=== PATIENT | female | born 1945 | race Caucasian/White ===

== ENCOUNTER → 2016-11-19 | Outpatient (CLI) | payer MEDICARE, OTHER ==
--- NOTE | 2016-11-20 13:25 | MM ---
Reason for exam: screening (asymptomatic). Last mammogram was performed 2 years ago. History: Patient is postmenopausal. Benign right mammotome panel of the right breast, July 21, 2013. Implant Removal of both breasts, July 2008. Breast lifts of both breasts, 2008. Benign stereotactic core biopsy of the right breast, March 11, 2001. Saline implants in both breasts, 1979. Took estrogen for 4 years beginning at age 53. Took progesterone for 4 years beginning at age 53. Physical Findings: A clinical breast exam by your physician is recommended on an annual basis and results should be correlated with mammographic findings. MG 3D Screening Mammo W/Cad Bilateral CC and MLO view(s) were taken. Prior study comparison: November 22, 2014, bilateral MG diagnostic mammo w CAD [facility]. January 17, 2014, right breast MG diagnostic mammo RT w CAD. July 14, 2013, right diagnostic mammogram w/CAD. There are scattered fibroglandular densities. Finding: There are typically benign dystrophic calcifications in the lower inner quadrant, posterior position of the right breast. Previous mammotome biopsy in the right breast. There is a chronic nodularity in the left breast. There is no discrete abnormality. Benign axillary lymph nodes bilaterally. ASSESSMENT: Benign, BI-RAD 2 RECOMMENDATION: Routine screening mammogram of both breasts in 1 year.
== END | disposition home or self-care (01) ==
LOC: RADMAMWWP 11:17
PROVIDERS: ATTEND Obstetrics & Gynecology
DX: Z12.31 Encounter for screening mammogram for malignant neoplasm of breast (principal)
CPT/HCPCS: 77063; G0202

== ENCOUNTER → 2017-11-27 | Outpatient (CLI) | payer MEDICARE, OTHER ==
[2017-11-27 08:25] LABS: Cholesterol 197 mg/dL (<200); HDL Cholesterol 54 mg/dL (40-60); LDL Cholesterol,Calculated 124 mg/dL (0-99); Triglycerides 96 mg/dL (<150)
== END | disposition home or self-care (01) ==
LOC: LABWHC1 06:50
PROVIDERS: ATTEND Obstetrics & Gynecology
DX: Z13.220 Encounter for screening for lipoid disorders (principal)
CPT/HCPCS: 36415; 80061

== ENCOUNTER → 2017-12-09 | Outpatient (CLI) | payer MEDICARE, OTHER ==
--- NOTE | 2017-12-10 12:05 | MM ---
Reason for exam: screening (asymptomatic). Last mammogram was performed 1 year and 1 month ago. History: Patient is postmenopausal. Benign right mammotome panel of the right breast, July 21, 2013. Implant Removal of both breasts, July 2008. Breast lifts of both breasts, 2008. Benign stereotactic core biopsy of the right breast, March 11, 2001. Saline implants in both breasts, 1979. Took estrogen for 4 years beginning at age 53. Took progesterone for 4 years beginning at age 53. Physical Findings: A clinical breast exam by your physician is recommended on an annual basis and results should be correlated with mammographic findings. MG 3D Screening Mammo W/Cad Bilateral CC and MLO view(s) were taken. Prior study comparison: November 19, 2016, bilateral MG 3d screening mammo w/cad. November 22, 2014, bilateral MG diagnostic mammo w CAD LENIN. There are scattered fibroglandular densities. Finding: There are dystrophic, grouped/clustered calcifications in the inner quadrant, posterior position of the right breast. Some vascular calcifications right breast medially. Previous mammotome biopsy in the right breast. There is no discrete abnormality. ASSESSMENT: Benign, BI-RAD 2 RECOMMENDATION: Routine screening mammogram of both breasts.
== END | disposition home or self-care (01) ==
LOC: RADMAMWWP 09:42
PROVIDERS: ATTEND Obstetrics & Gynecology
DX: Z12.31 Encounter for screening mammogram for malignant neoplasm of breast (principal)
CPT/HCPCS: 77063; 77067

== ENCOUNTER → 2018-08-24 | Outpatient (CLI) | payer MEDICARE, OTHER ==
[2018-08-24 15:29] LABS: Partial Thromboplastin Time 23.9 sec (22.0-30.0); Prothrombin Time 10.2 sec (9.0-12.0)
[2018-08-24 15:30] LABS: Basophils # (A) 0.1 k/uL (0-0.2); Basophils % (A) 1 %; Eosinophils # (A) 0.2 k/uL (0-0.7); Eosinophils % (A) 2 %; HCT 42.4 % (34.0-46.0); HGB 14.1 gm/dL (11.4-16.0); Lymphocytes # (A) 3.2 k/uL (1.0-4.8); Lymphocytes % (A) 25 %; MCH 32.3 pg (25.0-35.0); MCHC 33.1 g/dL (31.0-37.0); MCV 97.6 fL (80.0-100.0); Mean Platelet Volume 7.4; Monocytes # (A) 0.7 k/uL (0-1.0); Monocytes % (A) 5 %; Neutrophils # (A) 8.6 k/uL (1.3-7.7); Neutrophils % (A) 66 %; Platelet Count 378 k/uL (150-450); RBC 4.34 m/uL (3.80-5.40); RDW 13.5 % (11.5-15.5)
[2018-08-25 00:24] LABS: HIV 1 AB Non-Reactive (Non-Reactive); HIV AB P24 Non-Reactive (Non-Reactive); HIV P24 AG Non-Reactive (Non-Reactive)
[2018-08-25 01:43] LABS: Albumin 4.3 g/dL (3.80-4.90); Albumin/Globulin Ratio 2.05 (1.60-3.17); Anion Gap 13.3 mmol/L (4.00-12.00); Calcium 9.4 mg/dL (8.7-10.3); Carbon Dioxide 18.7 mmol/L (21.6-31.8); Globulin 2.1 g/dL (1.6-3.3); Potassium 4.3 mmol/L (3.5-5.5); Total Bilirubin 0.4 mg/dL (0.2-1.2); Total Protein 6.4 g/dL (6.2-8.2)
== END | disposition home or self-care (01) ==
LOC: LABWHC1 14:17
PROVIDERS: ATTEND Internal Medicine
DX: Z01.818 Encounter for other preprocedural examination (principal); Z01.812 Encounter for preprocedural laboratory examination
CPT/HCPCS: 36415; 80053; 85025; 85610; 85730; 86803; 87390; 93005

== ENCOUNTER → 2018-08-28 | Outpatient (CLI) | payer MEDICARE, OTHER ==
[2018-08-28 15:30] LABS: Appearance,Urine Clear (Clear); Bilirubin,Urine Negative (Negative); Blood,Urine Negative (Negative); Color,Urine Yellow; Glucose,Urine (UA) Negative (Negative); Ketones,Urine Negative (Negative); Leukocyte Esterase,Urine Negative (Negative); Nitrite,Urine Negative (Negative); PH, Urine 5.5 (5.0-8.0); Protein,Urine Trace (Negative); Urobilinogen,Urine <2.0 mg/dL (<2.0)
== END | disposition home or self-care (01) ==
LOC: LABWHC1 12:45
PROVIDERS: ATTEND Otolaryngology Facial Plastic Surgery
DX: D72.829 Elevated white blood cell count, unspecified (principal)
CPT/HCPCS: 81003

== ENCOUNTER → 2018-10-02 | Outpatient (CLI) | payer MEDICARE, OTHER ==
--- NOTE | 2018-10-02 14:21 | US ---
EXAMINATION TYPE: US transvaginal DATE OF EXAM: 10/02/2018 COMPARISON: NONE CLINICAL HISTORY: N95.0Postmenopausal bleeding, R93.89Abnormal findi. TECHNIQUE: Transvaginal (TV). Date of LMP: postmenopausal EXAM MEASUREMENTS: Uterus: 8.9 x 4.3 x 6.4 cm Endometrial Stripe: 0.6 cm Right Ovary: 2.7 x 2.2 x 2.1 cm Left Ovary: 2.1 x 1.6 x 1.4 cm 1. Uterus: Retroverted heterogenous 2. Endometrium: measures 0.6 cm 3. Right Ovary: wnl 4. Left Ovary: wnl 5. Bilateral Adnexa: wnl 6. Posterior cul-de-sac: no free fluid Appears be shadowing calculi within the uterus. IMPRESSION: 1. Calcification within the uterus with posterior shadowing. Suspicious pelvic ultrasound abnormality visualized.
== END | disposition home or self-care (01) ==
LOC: RADUSWWP 13:06
PROVIDERS: ATTEND Obstetrics & Gynecology
DX: N85.8 Other specified noninflammatory disorders of uterus (principal)
CPT/HCPCS: 76830

== ENCOUNTER → 2018-10-13 | Outpatient (CLI) | payer MEDICARE, OTHER ==
--- NOTE | 2018-10-13 18:42 | BD ---
EXAMINATION TYPE: Axial Bone Density DATE OF EXAM: 10/13/2018 COMPARISON: NONE CLINICAL HISTORY: 73-year-old female postmenopausal screening, disorder of bone Height: 64.5 Weight: 174.2 FRAX RISK QUESTIONS: Alcohol (3 or more units per day): no Family History (Parent hip fracture): no Glucocorticoids (More than 3mos): no (Ex: prednisone, prednisolone, methylprednisolone, dexamethasone, and hydrocortisone). History of Fracture in Adulthood: no Secondary Osteoporosis: 1. Type 1 Diabetes: no 2. Hyperthyroidism: no 3. Menopause before 45: no 4. Malnutrition: no 5. Chronic liver disease: no Rheumatoid Arthritis: no Current Tobacco Use: no RISK FACTORS HISTORY OF: Family History of Osteoporosis: no Active: yes Diet low in dairy products/other sources of calcium: no Postmenopausal woman: age 57 MEDICATIONS: none Additional History: EXAM MEASUREMENTS: Bone mineral densitometry was performed using the [employer]. Bone mineral density as measured about the Lumbar spine is: ----- L1-L4(G/cm2): 1.352 T Score Values are as follows: ----- L2: 1.2 ----- L3: 1.9 ----- L4: 1.6 ----- L1-L4: 1.4 Bone mineral density has: increased 8.7% since study of: 11.29.2013 Bone mineral density about the R hip (g/cm2): 0.836 Bone mineral density about the L hip (g/cm2): 0.896 T Score values are as follows: -----R Neck: -1.5 -----L Neck: -1.0 -----R Total: -0.1 -----L Total: -0.2 Bone mineral density has: increased 2.3 % since study of: 11.29.2013 IMPRESSION: Osteopenia (T Score between -2.5 and -1). There is slightly increased risk of fracture and the patient may be considered for treatment. Re-Screen 2-5 years. NOTE: T-SCORE=SD OF THE YOUNG ADULT MEAN.
== END | disposition home or self-care (01) ==
LOC: RADBDWWP 13:23
PROVIDERS: ATTEND Obstetrics & Gynecology
DX: M85.80 Other specified disorders of bone density and structure, unspecified site (principal); Z78.0 Asymptomatic menopausal state
CPT/HCPCS: 77080

== ENCOUNTER → 2018-12-11 | Outpatient (CLI) | payer MEDICARE, OTHER ==
--- NOTE | 2018-12-15 08:24 | MM ---
Reason for exam: screening (asymptomatic). Last mammogram was performed 1 year ago. History: Patient is postmenopausal. Benign right mammotome panel of the right breast, July 21, 2013. Implant Removal of both breasts, July 2008. Breast lifts of both breasts, 2008. Benign stereotactic core biopsy of the right breast, March 11, 2001. Saline implants in both breasts, 1979. Took estrogen for 4 years beginning at age 53. Took progesterone for 4 years beginning at age 53. Physical Findings: A clinical breast exam by your physician is recommended on an annual basis and results should be correlated with mammographic findings. MG 3D Screening Mammo W/Cad Bilateral CC and MLO view(s) were taken. Prior study comparison: December 09, 2017, bilateral MG 3d screening mammo w/cad. November 19, 2016, bilateral MG 3d screening mammo w/cad. There are scattered fibroglandular densities. Previous mammotome biopsy in the right breast. No significant changes when compared with prior studies. ASSESSMENT: Negative, BI-RAD 1 RECOMMENDATION: Routine screening mammogram of both breasts in 1 year.
== END | disposition home or self-care (01) ==
LOC: RADMAMWWP 12:37
PROVIDERS: ATTEND Obstetrics & Gynecology
DX: Z12.31 Encounter for screening mammogram for malignant neoplasm of breast (principal)
CPT/HCPCS: 77063; 77067

== ENCOUNTER → 2018-12-16 | Outpatient (CLI) | payer MEDICARE, OTHER ==
--- NOTE | 2018-12-16 17:43 | US ---
EXAMINATION TYPE: US pelvic complete DATE OF EXAM: 12/16/2018 COMPARISON: Pelvic ultrasound dated 10/02/2018 CLINICAL HISTORY: N95.0 PMB. HX of postmenopausal bleeding. TECHNIQUE: Transvaginal EXAM MEASUREMENTS: Uterus: 8.0 x 4.2 x 7.0 cm Endometrial Stripe: 0.7 cm Right Ovary: 2.3 x 2.0 x 2.7 cm. This measured 2.2 x 2.1 x 2.7 cm on the exam of 10/02/2018. 1. Uterus: Anteverted Nabothian cysts seen. Echogenic foci seen. 2. Endometrium: Mildly enlarged 3. Right Ovary: Homogeneous solid appearance 4. Left Ovary: Obscured by overlying bowel gas 5. Bilateral Adnexa: wnl 6. Posterior cul-de-sac: wnl IMPRESSION: 1. Mildly thickened endometrium for a postmenopausal female. Considering the patient's postmenopausal bleeding percutaneous sampling could be considered. 2. Homogeneous solid appearance of the right ovary that is similar in size to the prior of 10/02/2018 although solid ovarian mass is a possibility. Given no interval growth follow-up pelvic ultrasound in 6 months is recommended.
== END | disposition home or self-care (01) ==
LOC: RADUSWWP 16:00
PROVIDERS: ATTEND Obstetrics & Gynecology
DX: N95.0 Postmenopausal bleeding (principal)
CPT/HCPCS: 76830

== ENCOUNTER → 2019-10-29 | Outpatient (CLI) | payer MEDICARE, OTHER ==
--- NOTE | 2019-10-29 15:24 | US ---
EXAMINATION TYPE: US transvaginal DATE OF EXAM: 10/29/2019 COMPARISON: 12/16/2018 CLINICAL HISTORY: N95.0 HX OF POST MENOPAUSAL BLEEDING. Pt states h/o postmenopausal bleeding, D&C ap prox 1 year ago and she states she has not had vaginal bleeding since TECHNIQUE: Transvaginal (TV). Transvaginal sonographic images of the pelvis were acquired. EXAM MEASUREMENTS: Uterus: 6.8 x 2.6 x 5.9 cm Endometrial Stripe: cm Right Ovary: 2.5 x 3.0 x 2.5 cm Left Ovary: 1.1 x 1.0 x 1.0 cm 1. Uterus: Retroverted Appeared bicornuate 2. Endometrium: Right endo horn= 0.4 cm, Left endo horn= 0.5 cm 3. Right Ovary: Solid lesion appearance, increased in size when compared to previous 4. Left Ovary: wnl 5. Bilateral Adnexa: wnl 6. Posterior cul-de-sac: wnl IMPRESSION: 1. Endometrial stripe measures 5 mm correlate clinically. 2. There is a solid-appearing mass within the right ovary increased in size from prior exam measuring approximately 3 cm. Correlate with CEA 125. Differential diagnosis includes neoplasms of the ovary.
== END | disposition home or self-care (01) ==
LOC: RADUSWWP 14:45
PROVIDERS: ATTEND Obstetrics & Gynecology
DX: N83.8 Other noninflammatory disorders of ovary, fallopian tube and broad ligament (principal); N95.0 Postmenopausal bleeding
CPT/HCPCS: 76830